=== PATIENT | male | born 1995 | race Two or more races ===

== ENCOUNTER 2020-06-08 15:44 | Inpatient (IN) | payer SELFPAY ==
[~2020-06-08] VITALS: Ht 170.2 cm; Wt 79.4 kg
[2020-06-08] VITALS (8 sets, daily range): BP systolic 117–154; BP diastolic 71–97
--- NOTE | 2020-06-08 15:54 | NUR ---
SISTER CALLED SISTER [phone]
--- NOTE | 2020-06-08 16:00 | NUR ---
BANDAR FROM HOME TO ER BED 12. AWAKE, NON VERBAL. DOES NOT FOLLOW COMMANDS NOR ANSWER WHEN TALKED TO. BROUGHT IN FOR BEING FOUND ON THE FLOOR "SNORRING". UPON ASSESSMENT, PT APPEARS TO BE POST ICTAL. MD WAS AT THE BEDSIDE. PLACED ON SEIZURE PRECAUTION.
--- NOTE | 2020-06-08 16:07 | NUR ---
PT NOTED WITH TONIC CLONIC SEIZURE. PT PLACED ON HIS SIDE. [address] MD WAS AT BEDSIDE FOR EVAL. ORDERS RECEIVED TO GIVE ATIVAN 2MG IV.NOTED AND CARRIED OUT
[2020-06-08] MEDS ORDERED: LORAZEPAM INJ 2 MG/ML VIAL ONE ×2 (16:08→16:22)
[2020-06-08] MEDS: LORAZEPAM INJ 2 MG/ML VIAL IV ONE ×2 (16:25→16:51)
[2020-06-08 16:27] LABS: BASOPHILS # (AUTO) 0.1 /CMM (0.0-0.2); BASOPHILS % (AUTO) 0.5 % (0.0-2.0); EOSINOPHILS % (AUTO) 0.9 % (0.0-6.0); HEMATOCRIT 56 % (39-51); HEMOGLOBIN 17.4 g/dL (13.5-17.5); LYMPHOCYTES # (AUTO) 5.1 /CMM (0.8-4.8); LYMPHOCYTES % (AUTO) 22.8 % (20.0-44.0); MEAN CORPUSCULAR HGB CONC 31 g/dl (31.0-36.0); MEAN CORPUSCULAR VOLUME 102 fL (80-96); NEUTROPHILS % (AUTO) 66.8 % (43.0-81.0); PLATELET COUNT (AUTO) 420 /CMM (150-450); RED BLOOD CELL COUNT(AUTO) 5.46 MIL/uL (4.5-6.0); WHITE BLOOD COUNT (AUTO) 22.5 K/uL (4.3-11.0)
[2020-06-08] MEDS ORDERED: LORAZEPAM INJ 2 MG/ML VIAL IV ONE (16:30)
[2020-06-08 17:02] LABS: CALCIUM, SERUM 9.6 mg/dL (8.5-10.1); CARBON DIOXIDE 14 mmol/L (21-32); CHLORIDE 105 mmol/L (98-107); GLUCOSE 270 mg/dL (74-106); POTASSIUM 3.7 mmol/L (3.5-5.1); SODIUM SERUM 145 mmol/L (136-145); UREA NITROGEN, BLOOD 10 mg/dL (7-18)
[2020-06-08 17:03] LABS: SERUM AMMONIA 161 umol/L (11-32)
[2020-06-08 17:04] LABS: ALCOHOL, BLOOD < 3 mg/dL (0-0)
--- NOTE | 2020-06-08 17:10 | NUR ---
PT TO CT ON KELBY Narayanan/ RN AT BEDSIDE
[2020-06-08 17:22] LABS: LYMPHOCYTES % (MANUAL) 22 % (16-48); MONOCYTES % (MANUAL) 8 % (0-11.0); NEUTROPHILS % (MANUAL) 70 (42-76)
[2020-06-08] MEDS: LEVETIRACETAM (500MG) 1,000 MG in IV NS 0.9% 100 ML IV SCH (17:23)
--- NOTE | 2020-06-08 17:36 | NUR ---
UNABLE TO DO CT PT IS MOVING TO MUCH AND UNABLE TO FOLLOW COMMAND. MD MADE AWARE AND WAS AT TH BEDSIDE. MD INSTRUCTED TO LET PT REST FOR 30MIN TO SEE IF HE WILL BE GEETING CLOSER TO HIS BASELINE. WILL CONTINUE TO MONITOR. SITTER AT BEDSIDE
[2020-06-08 18:12] LABS: ALBUMIN 4.6 g/dL (3.4-5.0); BILIRUBIN,DIRECT 0.1 mg/dL (0.0-0.2); BILIRUBIN,TOTAL 0.4 mg/dL (0.2-1.0)
[2020-06-08 18:13] LABS: TOTAL PROTEIN, SERUM 8.7 g/dL (6.4-8.2)
[2020-06-08] MEDS ORDERED: PROPOFOL 100 ML ONE ×2 (18:40→21:09)
--- NOTE | 2020-06-08 18:53 | NUR ---
MD AT BEDSIDE FOR INTUBATION. RT AND RN AT BEDSIDE WELL. VSS
--- NOTE | 2020-06-08 18:54 | NUR ---
ETOMIDATE 23.5MG IVP X 1
--- NOTE | 2020-06-08 18:55 | NUR ---
ROCORONIUM 78.5MG IVP X 1.
--- NOTE | 2020-06-08 18:56 | NUR ---
INTUBATED SUCCESSFULLY. ET 7.5, 23 @ LIP. VENT SETTING AC16, VT500. O2 50%, +5 PEEP
[2020-06-08] MEDS: PROPOFOL 100 ML IV PRN ×3 (18:57→23:06)
--- NOTE | 2020-06-08 18:57 | NUR ---
PT IN SOFT WRIST RESTRAINT. PROPOFOL STARTED.
[2020-06-08] MEDS ORDERED: ROCURONIUM BROMIDE 100 MG/10 ML VIAL IV ONE (19:00)
[2020-06-08] MEDS ORDERED: ETOMIDATE 2 MG/ML VIAL IV ONE (19:00)
--- NOTE | 2020-06-08 19:06 | NUR ---
PER [phone] OTHER SISTER
--- NOTE | 2020-06-08 19:55 | NUR ---
RT PATIENT WAS INTUBATED IN THE ER AND PLACED ON NOTED VENT SETTINGS PER MD ORDER. VENT PLUGGED INTO RED OUTLET . ALARMS ARE ON AND AUDIBLE. WILL CONTINUE TO MONITOR PATIENT.
--- NOTE | 2020-06-08 20:03 | NUR ---
[facility] CALLED FIBER MACHINE TENDER PAGED. USHA
--- NOTE | 2020-06-08 20:20 | NUR ---
PT ASSIGNED TO [address] ICU
[2020-06-08 21:08] LABS: ABG BASE EXCESS -5.4 mmol/L; ABG OXYGEN SATURATION 98.3 % (92.0-98.5); ABG PCO2 41.9 mmHg (35.0-45.0); ABG PO2 138.4 mmHg (75.0-100.0); COHb 0.3 % (0.5-1.5); MetHb 0.7 % (0.0-1.5); O2Hb 97.3 % (94.0-97.0); SITE, ABG Right Radial
--- NOTE | 2020-06-08 21:18 | NUR ---
PT VOMMITED X 1 EPISODE. NOTED 100ML W/ COFFEE GROUND EMESIS. AWARE. NNO RECEIVED
--- NOTE | 2020-06-08 21:19 | NUR ---
RT CALLED TO TRANSPORT PT TO ICU
[2020-06-08] MEDS ORDERED: LEVETIRACETAM (500MG) 500 MG in IV NS 0.9% 100 ML IV SCH (21:30)
--- NOTE | 2020-06-08 21:36 | NUR ---
pt transported to unit on gurney with emt , rt and rn at bedside w/ acls protocol. nad noted during trasnport.
[2020-06-08] MEDS ORDERED: LORAZEPAM INJ 2 MG/ML VIAL IV PRN (22:00)
--- NOTE | 2020-06-08 22:00 | NUR ---
MAAME SCHEDULED AT 2130 WAS HELD DUE TO MEDICATION ALREADY HAD BEEN GIVEN IN ER.
[2020-06-08 22:06] LABS: MAGNESIUM 2.6 mg/dL (1.8-2.4)
[2020-06-08] MEDS ORDERED: MORPHINE SULFATE INJ 2 MG/ML DISP.SYRIN IV PRN (22:30)
[2020-06-08] MEDS ORDERED: ACETAMINOPHEN 650 MG/SUPP.RECT RC PRN (22:30)
--- NOTE | 2020-06-08 22:58 | NUR ---
RT NOTES PT RECEIVED ORALLY INTUBATED 7.5 ETT SECURED @23CM LIP LINE ON [facility] VENT ON ORDERED SETTINGS AC, 16, 500, 50%, +5. NO SIGNS OF RESP DISTRESS. AIRWAY PATENT AND SECURED. FORENSIC PHOTOGRAPHER DONE. PT SUCTIONED SMALL AMOUNT OF CLEAR SECRETIONS. ALARMS SET AND AUDIBLE. VENT PLUGGED INTO RED OUTLET. WILL CONT TO MONITOR. Addendum: 06/08/20 at 2336 by JOAQUIN TEMPLETON RT Amended: Links added.
[2020-06-08] MEDS: IV D5/0.45 NACL 1,000 ML IV PRN (23:04)
[2020-06-09] VITALS (32 sets, daily range): BP systolic 97–161; BP diastolic 51–128
[2020-06-09] MEDS: PROPOFOL 100 ML IV PRN ×9 (01:52→22:55)
[2020-06-09 04:35] LABS: BASOPHILS # (AUTO) 0.1 /CMM (0.0-0.2); BASOPHILS % (AUTO) 0.4 % (0.0-2.0); HEMATOCRIT 45 % (39-51); HEMOGLOBIN 15.3 g/dL (13.5-17.5); LYMPHOCYTES % (AUTO) 10.2 % (20.0-44.0); MEAN CORPUSCULAR HGB CONC 34 g/dl (31.0-36.0); MEAN CORPUSCULAR VOLUME 96 fL (80-96); MONOCYTES # (AUTO) 1.6 /CMM (0.1-1.30); MONOCYTES % (AUTO) 8.4 % (2.0-12.0); NEUTROPHILS # (AUTO) 15.8 /CMM (1.8-8.9); PLATELET COUNT (AUTO) 365 /CMM (150-450); RED BLOOD CELL COUNT(AUTO) 4.74 MIL/uL (4.5-6.0); WHITE BLOOD COUNT (AUTO) 19.5 K/uL (4.3-11.0)
[2020-06-09 04:43] LABS: ALBUMIN 3.9 g/dL (3.4-5.0); BILIRUBIN,TOTAL 0.6 mg/dL (0.2-1.0); CALCIUM, SERUM 8.8 mg/dL (8.5-10.1); MAGNESIUM 2.6 mg/dL (1.8-2.4); PHOSPHORUS 3.4 mg/dL (2.5-4.9); POTASSIUM 3.4 mmol/L (3.5-5.1); TOTAL PROTEIN, SERUM 7.6 g/dL (6.4-8.2)
[2020-06-09] MEDS: LEVETIRACETAM (500MG) 1,000 MG in IV NS 0.9% 100 ML IV SCH (04:56)
[2020-06-09] MEDS ORDERED: LORAZEPAM INJ 2 MG/ML VIAL IV PRN (07:00)
--- NOTE | 2020-06-09 08:00 | NUR ---
horticultural farmworker received pt in bed sedated on propofol, provided sed vac pt became restless attempting to pull lines, hr 120s resumed propfol for sedation, iv access patent x2 acs infusing med and fluids as ordered, orders received for ng tube placement and carried out Lisa RN verified positive placement, flores patent w/ urine output, turn and repoistion in bed release restraints provided PROM checked for skin breakdown and circultaion, safety measures taken will cont to monitor.
[2020-06-09] MEDS: LACTULOSE 10 G/15 ML UDC (PYXIS) NG SCH ×3 (08:30→22:32)
[2020-06-09] MEDS: PANTOPRAZOLE 40 MG VIAL IV SCH (08:30)
[2020-06-09] MEDS ORDERED: ETOPOSIDE IV ONE (08:43)
[2020-06-09] MEDS ORDERED: ROCURONIUM BROMIDE 50 MG/5 ML ONE (08:43)
[2020-06-09] MEDS: POTASSIUM CL. PREMIX PERIPHER. 50 ML IV SCH ×2 (10:10→11:42)
[2020-06-09] MEDS ORDERED: POTASSIUM CL. PREMIX PERIPHER. 50 ML IV SCH (11:00)
[2020-06-09] MEDS: IV D5/0.45 NACL 1,000 ML IV PRN (12:17)
[2020-06-09] MEDS: PIPERACILLIN /TAZOBACTAM 3.375 G in IV D5W 50 ML IV SCH ×3 (12:22→23:08)
--- NOTE | 2020-06-09 20:00 | NUR ---
international account manager received pt in bed sedated on 100mcg of propofol, intubated on ett 7.5 / 23at lip intact and secured v/s stable afebrile sinus rhythm on the monitor at 98 sating 98% vent settings well tolerated no sob no distress noted ,iv access patent x2 acs infusing med and fluids as ordered, with nasogastric tube on right nosetrills at 55cm jany intact and positive placement verify by 2 nurses. flores cath patent intact w/ urine output, turn and repoistion . on bilateral soft wrist restraint to prevent pulling invasive tubing release restraints provided PROM checked for skin breakdown and circultaion, safety measures taken will cont to monitor.
[2020-06-09] MEDS: LEVETIRACETAM (500MG) 500 MG in IV NS 0.9% 100 ML IV SCH (21:12)
--- NOTE | 2020-06-09 22:00 | NUR ---
agriculture department chair notes pts turned and reposition continue on vent well tolerated remains on propofol 100ncg pts still restless at times , nno seizure activity noted with bilateral padded siderails ,ngt jany 55cm intact and patent will continue to monitor pts ,v/s stable afebrile
[2020-06-10] VITALS (13 sets, daily range): BP systolic 107–171; BP diastolic 53–87
--- NOTE | 2020-06-10 | NUR ---
agricultural produce commission agent notes DUE MEDS GIVEN ORDERED WITH NO ASE NOTED .WILL CONTINUE TO MONITOR PTS.
[2020-06-10] MEDS: PROPOFOL 100 ML IV PRN ×5 (01:15→08:34)
[2020-06-10] MEDS: IV D5/0.45 NACL 1,000 ML IV PRN (01:36)
[2020-06-10 04:38] LABS: BASOPHILS % (AUTO) 0.3 % (0.0-2.0); EOSINOPHILS % (AUTO) 0.7 % (0.0-6.0); HEMATOCRIT 45 % (39-51); HEMOGLOBIN 14.8 g/dL (13.5-17.5); LYMPHOCYTES # (AUTO) 1.6 /CMM (0.8-4.8); LYMPHOCYTES % (AUTO) 13.9 % (20.0-44.0); MEAN CORPUSCULAR HGB CONC 33 g/dl (31.0-36.0); MEAN CORPUSCULAR VOLUME 98 fL (80-96); MONOCYTES % (AUTO) 8.9 % (2.0-12.0); NEUTROPHILS # (AUTO) 8.7 /CMM (1.8-8.9); NEUTROPHILS % (AUTO) 76.2 % (43.0-81.0); PLATELET COUNT (AUTO) 299 /CMM (150-450); RED BLOOD CELL COUNT(AUTO) 4.57 MIL/uL (4.5-6.0); WHITE BLOOD COUNT (AUTO) 11.5 K/uL (4.3-11.0)
[2020-06-10 04:46] LABS: CALCIUM, SERUM 9.1 mg/dL (8.5-10.1); CREATININE 0.8 mg/dL (0.6-1.3); POTASSIUM 3.5 mmol/L (3.5-5.1)
[2020-06-10] MEDS: PIPERACILLIN /TAZOBACTAM 3.375 G in IV D5W 50 ML IV SCH ×2 (05:08→12:00)
[2020-06-10] MEDS: LACTULOSE 10 G/15 ML UDC (PYXIS) NG SCH (07:04)
--- NOTE | 2020-06-10 07:28 | NUR ---
RIVET TAPPING MACHINE OPERATOR NOTES PTS REMAINS IN PROPOFOL AT 100MCG ENDORSE TO RN HAKOP FOR CONTINUITY OF CARE.
--- NOTE | 2020-06-10 07:49 | NUR ---
RN OPENING NOTE RECEIVED PATIENT IN BED SLEEPING, NO S/S OF DISTRESS, ON MECHANICAL VENT VIA ETT, AC 16, TV500, FIO2 30, PEEP 5, TOLERATING WELL, NG TUBE R NARE SECURED, TELEMONITOR SHOWING SINUS RHYTHM, NO EDEMA ON FEET, NO HEEL REDNESS, PATIENT IS SEDATED ON PROPOFOL INFUSING AT 100 MCG/KG, IV SITE R AC 20 G, L AC 18 G, PATENT AND INTACT, INFUSING D5 1/2 NS AT 50 CC/HR, LUNGS CLEAR UPON AUSCULTATION, BOWEL SOUNDS PRESENT, BILATERAL SOFT WRIST RESTRAINTS INTACT, SEIZURE PRECAUTIONS HAVE BEEN IMPLEMENTED, SAFETY MEASURES IMPLEMENTED, CALL LIGHT WITHIN REACH, BED IN LOWEST AND LOCKED POSITION, SIDE RAILS UP X4, WILL CONTINUE TO MONITOR FOR ANY CHANGES.
[2020-06-10] MEDS: PANTOPRAZOLE 40 MG VIAL IV SCH (08:30)
[2020-06-10] MEDS: LEVETIRACETAM (500MG) 500 MG in IV NS 0.9% 100 ML IV SCH (08:31)
[2020-06-10] MEDS ORDERED: DC PROPOFOL WHEN EXTUBATED XX PRN (09:30)
--- NOTE | 2020-06-10 09:35 | NUR ---
RN NOTES PT WAS EXTUBATED THIS AM @0925. DIPRIVAN WAS TITRATED DOWN FROM 100 MCG PER PROTOCOL. PT PLACED ON 3L NC WITH COOL AEROSOL. PT IS STILL DROWSY BUT TOLERATED WELL. WILL CONTINUE TO MONITOR
--- NOTE | 2020-06-10 09:35 | NUR ---
RN NOTE PATIENT EXTUBATED WITH PT AND MD PRESENT. PROPOFOL D/C. TOLERATED WELL. IS NOW ON NASAL CANULA 3L. A/O X2. PATIENT IS AWAKE AND TALKING. WILL CONTINUE TO MONITOR RESPIRATORY STATUS.
--- NOTE | 2020-06-10 10:04 | NUR ---
Pt extubate @0925hrs per . Alfaro orders. Pt placed 3lpm/02 via NC and tolerating well. All vitals WNL. No signs of resp. distress noted. Will continue to monitor Qshift. Addendum: 06/10/20 at 1014 by NADEEN OWEN RT Amended: Links added.
[2020-06-10] MEDS ORDERED: OLANZAPINE 10 MG VIAL IM ONE (11:00)
--- NOTE | 2020-06-10 11:45 | NUR ---
RN NOTES PT IS GETTING AGITATED AND UPSET, STATES HE WANTS TO GO HOME, MANAGED TO BREAK OUT OF SOFT WRIST RESTRAINT. RAY CATH WAS FORCIBLY REMOVED ALONG WITH NG TUBE. PT WAS REPEATEDLY CURSING AT AND USING FOUL LANGUAGE TO ALL STAFF MEMEBERS, JORGITO FRANNY WAS CALLED X2. PT GOT OUT OF BED WITH UNSTEADY GAIT, AFTER MULTIPLE ATTEMPTS TO SIT HIM BACK DOWN. WHILE STANDING, PT THEN DEFECATED LIQUID STOOL ALL OVER THE FLOOR, PT STATES HE WANTS TO LEAVE AMA BUT IS NOT MENTALLY FIT AT THE MOMENT. PROVIDER WAS NOTIFIED OF PT BEHAVIOR AND WAS GIVEN AN ORDER FOR A ONE TIME DOSE OF ZYPREXA 10 MG IM, MED GIVEN ORDERED. PT IS CURRENTLY BACK ON RESTRAINTS AND IS SLIGHTLY LESS AGITATED. PSYCH CONSULT HAS BEEN ORDERED. PT IS REFUSING IV ABX, IV SITE ON ON RAC HAD BEEN FORCIBLY REMOVED. WILL CONTINUE TO MONITOR FOR ANY CHANGES.
--- NOTE | 2020-06-10 12:10 | NUR ---
RN NOTES PT IS NOT COMPLIANT WITH HEART MONITOR LEADS OR BP CUFF, REPEATEDLY TRIES TO REMOVE BOTH, UNABLE TO CONTINUOUSLY MONITOR PT ON MONITOR. 1:1 SITTER IS AT BEDSIDE, WILL CONTINUE TO MONITOR FOR ANY CHANGES.
--- NOTE | 2020-06-10 14:25 | NUR ---
FACILITY WORKER CHARGE PT LEFT AMA WITHOUT SIGNING FORM. PT AWAKE AND ALERT. ABLE TO ANSWER QUESTIONS APPROPRIATELY. GIVEN FOOD AND JUICE. OBSERVED PT WALKING INDEPENDENTLY TO THE TOILET AND TOWARDS THE EXIT. PT DECLINED HELP WITH TRANSPORTATION AND CONTACTING FAMILY. PROVIDED CLOTHES. PT AMBULATED OUT OF ICU ESCORTED BY NURSE AND SITTER. ALL BELONGINGS GIVEN BACK TO PT.
--- NOTE | 2020-06-10 14:25 | NUR ---
RN NOTES PATIENT HAS LEFT AMA, REFUSED TO SIGN AMA FORM. PT POST-EXTUBATION WAS BELLIGERENT, NON-COMPLIANT, COMBATIVE, AND AGGRESSIVE TOWARDS STAFF. EMPHASIZED TO THE PT THE BENEFITS OF STAYING VS THE RISKS AND PT STATED "I DONT CARE I WANT TO LEAVE" PT WAS GIVEN A DONATED SHIRT SINCE HE DID NOT HAVE ONE, HIS BELONGINGS WERE RETURNED TO HIM: ID, PANTS, ALONG WITH UNDERWEAR. . IV SITES WERE REMOVED, RAY HAD BEEN REMOVED FORCIBLY EARLIER IN THE DAY BY THE PATIENT ALONG WITH NG TUBE. ID BAND WAS REMOVED. SELVIN POWELL CHANNEL EXECUTIVE WAS NOTIFIED OF PT AMA DEPARTURE
== END 2020-06-10 14:25 | disposition left against medical advice (07) | DRG 208 ==
LOC: ER 15:46 → ICU 20:26
PROVIDERS: ADMIT Internal Medicine; ATTEND Nurse Practitioner Acute Care
PROC: 5A1945Z Respiratory Ventilation, 24-96 Consecutive Hours (ICD-10-PCS; principal; 2020-06-08)
PROC: 0BH17EZ Insertion of Endotracheal Airway into Trachea, Via Natural or Artificial Opening (ICD-10-PCS; 2020-06-08)
DX: J69.0 Pneumonitis due to inhalation of food and vomit (principal); J96.01 Acute respiratory failure with hypoxia; G92 Toxic encephalopathy; E87.2 Acidosis; E72.20 Disorder of urea cycle metabolism, unspecified; G40.909 Epilepsy, unspecified, not intractable, without status epilepticus; D72.829 Elevated white blood cell count, unspecified; K72.90 Hepatic failure, unspecified without coma; K76.9 Liver disease, unspecified; K76.0 Fatty (change of) liver, not elsewhere classified; R73.9 Hyperglycemia, unspecified; F12.90 Cannabis use, unspecified, uncomplicated; F29 Unspecified psychosis not due to a substance or known physiological condition; R45.1 Restlessness and agitation; F19.90 Other psychoactive substance use, unspecified, uncomplicated
CPT/HCPCS: 31720; 36415; 36600; 70450-TC; 71045-TC; 76705-TC; 80048-TC; 80053-TC; 80076-TC; 82140-TC; 82803-TC; 83605-TC; 83690-TC; 83735-TC; 83935-TC; 84100-TC; 84484-TC; 85025-TC; 87081-TC; 94003-TC; 94799-TC; C9113; G0378; G0480; J1953; J2060; J2543; J3480; J3490; J7030; J7060; J9181

== ENCOUNTER 2022-09-11 16:19 | Emergency (ER) | payer OTHER ==
[~2022-09-11] VITALS: Ht 162.6 cm; Wt 72.6 kg
[2022-09-11 17:11] VITALS: BP 147/111
[2022-09-11] MEDS ORDERED: AMOX500C2 PO (17:43)
[2022-09-11] MEDS ORDERED: AMOXICILLIN TRIHYDRATE 250 MG CAPSULE ONE (17:50)
[2022-09-11] MEDS ORDERED: IBUPROFEN 600 MG TABLET ONE (17:50)
[2022-09-11] MEDS ORDERED: IBUPROFEN 600 MG TABLET PO ONE (18:00)
[2022-09-11] MEDS ORDERED: AMOXICILLIN TRIHYDRATE 500 MG CAPSULE PO ONE (18:00)
== END 2022-09-11 18:29 | disposition home or self-care (01) ==
LOC: ER 16:28
DX: J02.0 Streptococcal pharyngitis (principal)